=== PATIENT | female | born 1975 | race Two or more races ===

== ENCOUNTER 2018-07-09 13:53 | Inpatient (IN) | payer MEDICAID ==
[~2018-07-09] VITALS: Ht 170.2 cm; Wt 111.1 kg
[~2018-07-09 13:53] MED LIST: ALBUPOW26 XX
[2018-07-09] MEDS ORDERED: IPRATROPIUM BROM 0.5 MG/2.5ML INH SOL NEB ONE (14:15)
[2018-07-09] MEDS ORDERED: ALBUTEROL SULF 2.5 MG/0.5ML(0.5%) NEB SOLN NEB ONE (14:15)
[2018-07-09 14:59] LABS: Basophils # (auto) 0.1 uL; Basophils % (auto) 0.7 % (0.0-2.0); Eosinophils # (auto) 0.1 uL; Eosinophils % (auto) 0.5 % (0.0-7.0); Hematocrit 44.3 % (36.0-46.0); Hemoglobin 15.5 g/dL (12.2-16.2); Lymphocytes # (auto) 0.9 uL; Lymphocytes % (auto) 7.6 % (10.0-50.0); Mean Corpuscular Hemoglobin 30.6 pg (28.0-32.0); Mean Corpuscular Volume 87.5 fL (80.0-100.0); Monocytes # (auto) 0.4 uL; Monocytes % (auto) 3.2 % (0.0-12.0); Neutrophils # (auto) 9.9 uL; Nucleated Red Blood Cells % 0.1 %; Platelet Count (auto) 332 10^3/uL (140-450); Red Blood Cells 5.06 10^6/uL (4.0-5.20); Red Cell Distribution Width 13.7 % (11.8-14.3); White Blood Cell 11.2 10^3/uL (4.4-10.8)
[2018-07-09 15:18] LABS: Albumin 3.8 g/dL (3.4-5.0); Anion Gap 6 (5-15); Blood Urea Nitrogen 9 mg/dL (7-18); Carbon Dioxide 28 mmol/L (21-32); Chloride 103 mmol/L (98-107); Glucose 95 mg/dL (74-106); Potassium 3.6 mmol/L (3.5-5.1); Sodium 137 mmol/L (136-145)
[2018-07-09 15:25] LABS: Alanine Aminotransferase 60 U/L (13-56); Alkaline Phosphatase 93 U/L (45-117); Aspartate Aminotransferase 21 U/L (15-37); Bilirubin, Total 0.5 mg/dL (0.2-1.0); GFR African American 98 mL/min; GFR Non-African American 81 mL/min; Total Protein 8.2 g/dL (6.4-8.2)
[2018-07-09] MEDS ORDERED: cefTRIAXone 1GM/50ML D5W 50 ML IV ONE (15:45)
[2018-07-09] MEDS ORDERED: methylPREDNISolone SOD SUCC 125 MG/2 ML VL IV ONE (15:45)
[2018-07-09] MEDS ORDERED: ACETAMINOPHEN 500 MG TAB PO PRN (16:30)
[2018-07-09] MEDS ORDERED: ALBUTEROL SULF 2.5 MG/0.5ML(0.5%) NEB SOLN NEB PRN (16:30)
[2018-07-09] MEDS ORDERED: TEMAZEPAM 15 MG CAP PO PRN (16:30)
[2018-07-09] MEDS ORDERED: HYDROcodone-ACET 5/325MG TAB PO PRN (16:30)
[2018-07-09] MEDS ORDERED: LORazepam 0.5 MG TAB PO PRN (16:30)
[2018-07-09] MEDS ORDERED: OSELTAMIVIR 75 MG CAP PO ONE (16:30)
[2018-07-09] MEDS ORDERED: NITROGLYCERIN 0.4 MG SL TAB SL PRN (16:30)
[2018-07-09] MEDS ORDERED: MORPHINE SULFATE 4 MG/ML SYR/VIAL IV PRN ×2 (16:30)
[2018-07-09] MEDS ORDERED: LACTULOSE 20Gm/30ML SOLN PO PRN (16:30)
[2018-07-09] MEDS ORDERED: PROMETHAZINE HCL 25 MG/ML 1ML IV PRN (16:30)
[2018-07-09] MEDS: SODIUM CHLORIDE 0.9% 1,000 ML IV SCH (17:00)
[2018-07-09 17:24] VITALS: BP 147/77
[2018-07-09] MEDS: DOXYCYCLINE 100MG/250ML 250 ML IV SCH (17:42)
[2018-07-09] MEDS ORDERED: methylPREDNISolone SOD SUCC 40 MG/ML VL IV SCH (18:00)
[2018-07-09] MEDS: IPRATROPIUM BROM 0.5 MG/2.5ML INH SOL NEB SCH ×2 (18:19→23:49)
[2018-07-09] MEDS: ALBUTEROL SULF 2.5 MG/0.5ML(0.5%) NEB SOLN NEB SCH ×2 (18:19→23:49)
[2018-07-09 20:15] VITALS: BP 125/69
--- NOTE | 2018-07-09 20:15 | NUR ---
Telemetry admit from ER ISIDROYASHIRA admitted to Telemetry unit after SBAR received. Patient oriented to Saida Matthew, primary RN, unit, room, bed, and unit policies regarding patient care and visiting hours. Patient now on continuous telemetry monitoring, tele box #3 and telemetry reading on arrival to unit is Sinus Tach @129. Patient placed on bedside oxygen 2LNC, weighed by bed scale and encouraged to call if they need something. All questions and concerns addressed, patient verbalized understanding. Note: Patient is awake and alert x4, ambulating independently. SOB on exertion noted s/p ambulation to bathroom. Call light placed within reach. Patient denies pain.
[2018-07-09 20:45] VITALS: BP 125/69
[2018-07-09] MEDS: methylPREDNISolone SOD SUCC 40 MG/ML VL IV SCH (20:51)
[2018-07-09] MEDS ORDERED: PANT40TA2 PO (22:35)
[2018-07-09] MEDS ORDERED: BECL40AE11 IN (22:35)
[2018-07-09] MEDS ORDERED: ALBUAER3 IN (22:35)
[2018-07-09] MEDS ORDERED: LORA-154 PO (22:35)
[2018-07-09] MEDS ORDERED: NORT10SO PO (22:35)
[2018-07-09] MEDS ORDERED: RIZA5TAB14 PO (22:35)
[2018-07-10] MEDS: DOXYCYCLINE 100MG/250ML 250 ML IV SCH ×2 (04:46→17:02)
[2018-07-10 05:00] VITALS: BP 119/72
[2018-07-10] MEDS: SODIUM CHLORIDE 0.9% 1,000 ML IV SCH ×2 (05:40→19:00)
[2018-07-10] MEDS ORDERED: OSELTAMIVIR 75 MG CAP PO SCH (06:00)
--- NOTE | 2018-07-10 06:40 | NUR ---
ROOM TRANSFER PATIENT TRANSFERRED TO ROOM 288A WITH ALL BELONGINGS. NO S/S OF DISTRESS NOTED UPON TRANSPORT. REPORT GIVEN TO SHAKIRA SMITH.
[2018-07-10] MEDS: ALBUTEROL SULF 2.5 MG/0.5ML(0.5%) NEB SOLN NEB SCH ×3 (07:11→19:35)
[2018-07-10] MEDS: IPRATROPIUM BROM 0.5 MG/2.5ML INH SOL NEB SCH ×3 (07:11→19:35)
[2018-07-10] MEDS: ENOXAPARIN SOD 40 MG/0.4 ML SYRINGE SC SCH (10:00)
--- NOTE | 2018-07-10 12:45 | NUR ---
VISITORS PATIENTS FAMILY AT BEDSIDE, MANY QUESTIONS ASKED
[2018-07-10] MEDS: methylPREDNISolone SOD SUCC 40 MG/ML VL IV SCH ×2 (13:20→23:23)
[2018-07-10] MEDS: PANTOPRAZOLE 40 MG TAB PO SCH (13:20)
--- NOTE | 2018-07-10 15:30 | NUR ---
ASSUMED CARE OF PATIENT FROM DAY SHIFT SARAH WILLIAM. PATIENT IS AWAKE AND ALERT X4. PATIENT HAS NO S/S OF DISTRESS/SOB OR PAIN. FAMILY AT BEDSIDE. BED IS IN LOWEST POSITION WITH SIDE RAILS RAISED X2, BED WHEELS LOCKED AND CALL LIGHT IS WITHIN REACH. WILL CONTINUE TO MONITOR.
--- NOTE | 2018-07-10 15:35 | NUR ---
TRANSFER ENDORSED CARE DAYSHIFT SARAH BUSTILLOS, PATIENT STABLE AT THIS TIME WITH NO COMPLAINTS
--- NOTE | 2018-07-10 19:00 | NUR ---
OPENING NOTE ASSUMED CARE OF PATIENT. NO S/S OF DISTRESS. CALL LIGHT W/IN REACH. BED IS AT LOWEST POSITION.
--- NOTE | 2018-07-10 19:10 | NUR ---
CLOSING SHIFT NOTE ENDORSED CARE OF PATIENT TO MANAGER CENTER RN BEATRIZ. PATIENT HAS NO S/S OF DISTRESS/SOB OR PAIN AT THIS TIME
[2018-07-10 21:50] VITALS: BP 115/51
[2018-07-11] MEDS: IPRATROPIUM BROM 0.5 MG/2.5ML INH SOL NEB SCH ×3 (00:23→11:49)
[2018-07-11] MEDS: ALBUTEROL SULF 2.5 MG/0.5ML(0.5%) NEB SOLN NEB SCH ×3 (00:24→11:49)
[2018-07-11] MEDS: DOXYCYCLINE 100MG/250ML 250 ML IV SCH ×2 (04:41→14:53)
[2018-07-11 04:52] VITALS: BP 119/64
[2018-07-11 05:52] LABS: Basophils # (auto) 0 uL; Basophils % (auto) 0.1 % (0.0-2.0); Eosinophils # (auto) 0 uL; Hemoglobin 13.1 g/dL (12.2-16.2); Lymphocytes # (auto) 0.6 uL; Lymphocytes % (auto) 5.1 % (10.0-50.0); Mean Corpuscular Hemoglobin 30.3 pg (28.0-32.0); Mean Corpuscular Hgb Conc. 34.5 g/dL (32.0-36.0); Mean Corpuscular Volume 87.9 fL (80.0-100.0); Monocytes # (auto) 0.5 uL; Monocytes % (auto) 4.3 % (0.0-12.0); Neutrophils # (auto) 10.3 uL; Neutrophils % (auto) 90.5 % (37.0-80.0); Platelet Count (auto) 323 10^3/uL (140-450); Red Blood Cells 4.32 10^6/uL (4.0-5.20); Red Cell Distribution Width 14.3 % (11.8-14.3); White Blood Cell 11.4 10^3/uL (4.4-10.8)
[2018-07-11 06:03] LABS: Calcium 8.6 mg/dL (8.5-10.1); Potassium 3.9 mmol/L (3.5-5.1)
[2018-07-11 06:10] LABS: BUN/Creatinine Ratio 15.2; Lactic Acid w/Reflex 3.2 mmol/L (0.4-2.0)
--- NOTE | 2018-07-11 07:40 | NUR ---
Opening Shift Note Assumed care of patient, awake and alert, lying on bed. No S/S of distress/SOB or pain. Noted fine crackles on posterior area. Instructed on POC and to call for assist PRN, will continue to monitor for changes Q1hr and PRN.
[2018-07-11 08:18] VITALS: BP 118/58
[2018-07-11] MEDS: SODIUM CHLORIDE 0.9% 1,000 ML IV SCH (08:20)
[2018-07-11] MEDS: ENOXAPARIN SOD 40 MG/0.4 ML SYRINGE SC SCH (10:02)
[2018-07-11] MEDS: methylPREDNISolone SOD SUCC 40 MG/ML VL IV SCH (10:02)
[2018-07-11] MEDS: PANTOPRAZOLE 40 MG TAB PO SCH (10:02)
[2018-07-11 11:46] VITALS: BP 130/78
--- NOTE | 2018-07-11 14:49 | NUR ---
PT SEEN BY DR. RAO HE SAID PT CAN GO HOME WITH ORAL ANTIBIOTIC.
--- NOTE | 2018-07-11 14:54 | NUR ---
antibiotic doxycycline given earlier than time per Dr. Foss. Pt is going home after antibiotic.
[2018-07-11 16:22] VITALS: BP 123/72
--- NOTE | 2018-07-11 18:40 | NUR ---
Discharge instructions given as ordered. Encourage to follow up with DR. GARCIA ON JULY 18 AT 1PM, TEL# AND ADDRESS PROVIDED TO THE PT. All questions and concerns addressed. Patient verbalized understanding. Medication reconciliation form completed and copy given to patient. IV removed with catheter intact, pressure dressing applied. Patient taken to vehicle via wheelchair with all personal belongings, accompanied by staff and family member. No distress noted at time of departure.
== END 2018-07-11 18:40 | disposition home or self-care (01) | DRG 720 ==
LOC: ER 13:53 → TELE 16:21 → TELE-EAST 20:09 → TELE-WESTW 07-10 06:37 → WEST WING 07-10 14:40
PROVIDERS: ADMIT Internal Medicine; ATTEND Internal Medicine
DX: A41.9 Sepsis, unspecified organism (principal); J45.901 Unspecified asthma with (acute) exacerbation; G43.909 Migraine, unspecified, not intractable, without status migrainosus; K21.9 Gastro-esophageal reflux disease without esophagitis; N18.2 Chronic kidney disease, stage 2 (mild); J30.2 Other seasonal allergic rhinitis; E66.9 Obesity, unspecified; Z82.49 Family history of ischemic heart disease and other diseases of the circulatory system; Z83.3 Family history of diabetes mellitus; Z68.38 Body mass index [BMI] 38.0-38.9, adult; Z80.41 Family history of malignant neoplasm of ovary; Z80.51 Family history of malignant neoplasm of kidney; Z82.0 Family history of epilepsy and other diseases of the nervous system; Z79.899 Other long term (current) drug therapy; Z79.51 Long term (current) use of inhaled steroids
CPT/HCPCS: 36415; 71046; 80048; 80053; 83605; 84484; 85025; 87040; 87070; 87205; 87804; 93005; 94640; 94761; 96374; 96375; G0378; J0696; J3490

== ENCOUNTER → 2022-01-28 | Outpatient (CLI) | payer MEDICAID ==
[~2022-01-28] MED LIST changes: +ALBUAER3 IN; -ALBUPOW26 XX; +ALBUTEROL SULF 2.5 MG/0.5ML(0.5%) NEB SOLN ONE; +BECL40AE11 IN; +LORA-483 PO; +NORT10SO PO; +PANT40TA2 PO; +RIZA5TAB35 PO
== END | disposition home or self-care (01) ==
LOC: RT 08:39
PROVIDERS: ATTEND Internal Medicine Pulmonary Disease
DX: J45.909 Unspecified asthma, uncomplicated (principal); R06.00 Dyspnea, unspecified
CPT/HCPCS: 94060; 94727; 94729

== ENCOUNTER 2025-02-08 12:07 | Outpatient (CLI) | payer OTHER ==
[~2025-02-08 12:07] MED LIST changes: -ALBUTEROL SULF 2.5 MG/0.5ML(0.5%) NEB SOLN ONE
[2025-02-08 12:25] LABS: Urine Protein, UAD Negative (Negative)
== END 2025-02-08 17:00 | disposition home or self-care (01) ==
LOC: LAB 12:07
PROVIDERS: ATTEND Family Medicine
DX: N39.41 Urge incontinence (principal)
CPT/HCPCS: 81001; 87086